=== PATIENT | female | born 1990 | race Caucasian/White ===

== ENCOUNTER 2023-10-14 17:47 | Inpatient (IN) ==
[2023-10-14 21:04] VITALS: BMI 34.3
[2023-10-14 21:58] LABS: SERUM PREGNANCY TEST, QUAL NEGATIVE <10 mIU/mL
[2023-10-14 21:59] LABS: BASOPHILS % (AUTO) 0.5 % (0.2-1.0); EOSINOPHILS # (AUTO) 0.2 x10^3/uL (0.0-0.2); EOSINOPHILS % (AUTO) 2.6 % (0.9-2.9); HEMATOCRIT 27.3 % (36.0-47.0); LYMPHOCYTES # (AUTO) 2.4 X10^3/uL (1.3-2.9); LYMPHOCYTES % (AUTO) 29.8 % (21.0-51.0); MEAN CORPUSCULAR HEMOGLOBIN 26.8 pg (27.0-34.0); MEAN CORPUSCULAR VOLUME 81.2 fL (80.0-100.0); MEAN PLATELET VOLUME 7.3 fL (7.4-11.0); MONOCYTES # (AUTO) 0.4 x10^3/uL (0.3-0.8); MONOCYTES % (AUTO) 4.4 % (0.0-13.0); NEUTROPHILS # (AUTO) 5.1 x10^3/uL (2.2-4.8); NEUTROPHILS % (AUTO) 62.7 % (42.0-75.0); PLATELET COUNT 470 X10^3/uL (150.0-450.0); RED BLOOD COUNT 3.36 X10^6/uL (3.5-5.4); RED CELL DISTRIBUTION WIDTH 13.7 % (11.6-16.5); WHITE BLOOD COUNT 8.2 X10^3/uL (3.6-10.0)
[2023-10-14] MEDS ORDERED: PHARMACY CONSULT - VANCOMYCIN XX SCH (22:00)
[2023-10-14 22:01] LABS: ERYTHROCYTE SEDIMENTATION RATE 64 MM/HOUR (0-20)
[2023-10-14] MEDS: PERCOCET TAB 5/325 MG PO PRN (22:17)
[2023-10-14] MEDS: VANCOMYCIN IV *PREMIX 1.5 G/300 ML BAG 1.5 G/300 ML PIGGYBACK IV SCH (22:19)
[2023-10-15] MEDS: TORADOL 15 MG VIAL IVP PRN (01:05)
[2023-10-15 05:53] LABS: BASOPHILS % (AUTO) 0.3 % (0.2-1.0); EOSINOPHILS # (AUTO) 0.2 x10^3/uL (0.0-0.2); EOSINOPHILS % (AUTO) 2.8 % (0.9-2.9); HEMATOCRIT 28.3 % (36.0-47.0); HEMOGLOBIN 9.4 g/dL (12.0-16.0); LYMPHOCYTES # (AUTO) 2.6 X10^3/uL (1.3-2.9); LYMPHOCYTES % (AUTO) 35.5 % (21.0-51.0); MEAN CORPUSCULAR HGB CONC 33.1 g/dL (33.0-35.0); MEAN CORPUSCULAR VOLUME 81.4 fL (80.0-100.0); MEAN PLATELET VOLUME 7.8 fL (7.4-11.0); MONOCYTES # (AUTO) 0.4 x10^3/uL (0.3-0.8); MONOCYTES % (AUTO) 5.5 % (0.0-13.0); NEUTROPHILS # (AUTO) 4.1 x10^3/uL (2.2-4.8); NEUTROPHILS % (AUTO) 55.9 % (42.0-75.0); PLATELET COUNT 435 X10^3/uL (150.0-450.0); RED BLOOD COUNT 3.47 X10^6/uL (3.5-5.4); RED CELL DISTRIBUTION WIDTH 13.6 % (11.6-16.5); WHITE BLOOD COUNT 7.3 X10^3/uL (3.6-10.0)
[2023-10-15 06:01] LABS: BLOOD UREA NITROGEN 22 mg/dL (7-18); CALCIUM 8.7 mg/dL (8.5-10.1); CARBON DIOXIDE 25.3 mmol/L (21-32); CHLORIDE 101 mmol/L (98-107); COR NA(FOR HYPERGLY) 139 mmol/L (136-145); CREATININE 1.06 mg/dL (0.55-1.02); GLUCOSE 239 mg/dL (65-99); POTASSIUM 3.9 mmol/L (3.5-5.1); SODIUM 136 mmol/L (136-145); eGFR NON BLACK RACES > 60 (>60)
[2023-10-15] MEDS: NS 250 ML IV 250 ML IV ONE (07:55)
[2023-10-15] MEDS: VANCOMYCIN IV *PREMIX 1 G/200 ML BAG 1 G/200 ML PIGGYBACK IV SCH (07:55)
[2023-10-15] MEDS ORDERED: VANCOMYCIN IV *PREMIX 1.25 G/250 ML BAG 1.25 G/250 ML PIGGYBACK IV SCH (09:00)
--- NOTE | 2023-10-15 09:04 | NOTE.SOAP ---
Soap Note Note for Day of Date of Exam: 10/15/23 Subjective Data Subjective Data: 33 year old patient seen by Dr. Hedrick in [place] who underwent a lisfranc ORIF due to fracture dislocation with skin compromise of the right foot. Unfortunately the fracture progressed to charcot arthropathy and possible infection, became red, hot, swollen and macerated. Dr. Hedrick referred to Dr. Mari who recommend two stage surgery including external fixation followed by internal fixation in a couple of weeks. She also mentioned a wound to her left hallux that she has had since april and been treating conservatively. She has had a partial hallux amputation to that toe. Patient is experiencing neuropathic pain, otherwise she denies any constitutional symptoms but did not sleep very well last night. Objective Data Objective Data: Right foot is severely erythematous and edematous. Two dorsal incisions are intact but drainange serous fluid and are macerated. Fracture blister noted on the plantar lateral aspect of the foot. Pin site is macerated and erythematous on the medial side. Pulses are palpable. Gross epicritic and protective sensation is diminished Left foot: partial hallux amputation with a wound that measures 3x3x0.5cm that probes to periosteum. Wound is fibrogranular at the base with a hyperkeratotitc boarder. Mild erythema and drainage noted from the wound. Appears infected. Assessment Assessment: - Charcot arthropathy, right foot - Pressure ulcer with possible underlying osteomyelitis, left foot Plan Plan: Patient was seen bedside this am with mother. Diagnosis and treatment were discussed in full detail including all risks and benefits of surgical vs con servative treatment. Patient will be undergoing surgical intervention with a open reduction, possible midfoot osteotomy and application of external fixator to the right foot. MRI and XR ordered for the left foot to evaluate for osteomyelitis. Will possibly need a complete amputation of the left hallux if imaging shoes signs of infection to the bone; patient understands and consents to what needs to be done. Both feet were evaluated this am and dressed with a dry sterile dressing. On vanco as scheduled. Patient NPO for surgery this afternoon Surgery: Right foot open reduction, possible osteotomy with application of external fixator and possible left hallux amputation Time: 1.5hr Anesthesia: LMA or general
--- NOTE | 2023-10-15 09:26 | VAS ---
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
[2023-10-15] MEDS: NexIUM PO SCH (10:32)
[2023-10-15] MEDS: BUSPAR PO SCH (10:32)
[2023-10-15] MEDS: LEXAPRO PO SCH (10:32)
[2023-10-15] MEDS: LEXAPRO ONE (10:50)
[2023-10-15] MEDS ORDERED: COLACE CAP 100 MG PO PRN (10:53)
[2023-10-15] MEDS ORDERED: MILK OF MAGNESIA PO PRN (10:53)
--- NOTE | 2023-10-15 11:39 | CT ---
EXAM:LOWER EXT W/OHISTORY:EVALUATE LISFRANC DISLOCATION, RIGHT FOOT ; DM, SLEEP APNEA SX: JARED, SURGICAL INSTRUMENT TECHNICIAN, ORTHO-RIGHT FOOT X 2 WEEKS AGO.COMPARISON:NoneTECHNIQUE:Multiple axial images of the right foot were obtained without IV contrast. Coronal and sagittal reformats were made and reviewed. Dose reduction techniques included Automated Exposure Control (AEC) and adjustment of mA and kV.FINDINGS:There is dorsal and lateral displacement of 2nd through 5th metatarsals with respect to the cuneiforms and bones of the midfoot consistent with Lisfranc injury configuration.There appears to be drill holes in multiple bone suggesting previous hardware with removal. Fragmentation and calcifications are noted which could be posttraumatic or postsurgical. Differential diagnosis includes neuropathic joint.Therefore this probably represents Lisfranc fracture/dislocation.Distal tibia and fibula appear normal. Bones of the hindfoot, including the talus and calcaneus are unremarkable. There are degenerative changes in the bones of the midfoot.1st metatarsal still articulates with the 1st cuneiform but there is an abnormal angulation of the articulation.Diffuse soft tissue edema and fluid is noted in the midfoot. Tiny pockets of air are present. In the absence of any recent surgery, this might represent emphysematous cellulitis.IMPRESSION:1. Findings most consistent with Lisfranc fracture/dislocation2. Edema, fluid, and emphysema in the midfoot3. Fragmentation of the midfoot bones could be posttraumatic, postsurgical response, or neuropathic jointTHIS IS AN ELECTRONICALLY VERIFIED FINAL REPORT10/15/2023 11:36 AM - Electronically signed by Ryan Rizvi MD
[2023-10-15] MEDS: NS 1,000 ML IV 1,000 ML ONE ×2 (12:40→15:20)
[2023-10-15] MEDS: ZOFRAN INJ 4 MG VIAL ONE (13:34)
[2023-10-15] MEDS ORDERED: ULTANE GAS IN ONE (13:34)
[2023-10-15] MEDS ORDERED: VENTOLIN or PROAIR HFA ONE (13:34)
[2023-10-15] MEDS: BRIDION ONE (13:34)
[2023-10-15] MEDS: VERSED ONE (13:34)
[2023-10-15] MEDS: ZEMURON 100 MG VIAL ONE (13:34)
[2023-10-15] MEDS: NS 100 ML IV 100 ML ONE (13:34)
[2023-10-15] MEDS: DIPRIVAN VIAL 20 ML ONE (13:34)
[2023-10-15] MEDS: FENTANYL VIAL INJ 100 mcg ONE ×2 (13:34→14:03)
[2023-10-15] MEDS: PEPCID 20 MG VIAL ONE (13:34)
[2023-10-15] MEDS: ANCEF VIAL 1 GRAM ONE (13:34)
[2023-10-15] MEDS: XYLOCAINE 2 % (PLAIN) ONE (13:34)
[2023-10-15] MEDS: BETADINE SOLN ONE (13:37)
--- NOTE | 2023-10-15 14:04 | RAD ---
EXAM: FOOT, LEFT three-view HISTORY: EVALUATE FOR OSTEOMYELITIS ; COMPARISON: None FINDINGS: Possible fracture of 4th proximal phalanx. Remaining visualized osseous structures appear intact. P rior partial amputation of the 1st digit skin defect in the 1st digit with edema and subcutaneous nallely e gas in the 1st digit. Possible erosive changes involving the remaining 1st proximal phalanx. The talus and calcaneus appear intact. IMPRESSION: Suggestion of osteomyelitis involving the 1st proximal phalanx. Possible fracture of 4th proximal phalanx. THIS IS AN ELECTRONICALLY VERIFIED FINAL REPORT 10/15/2023 2:01 PM - Electronically signed by Rakan Joshua MD
--- NOTE | 2023-10-15 14:07 | MRI ---
EXAM: EXT LOWER NON-JOINT W/O CON HISTORY: RIGHT FOOT CHARCOT/PAIN/SWELLING; COMPARISON: None TECHNIQUE: Multiplanar, multisequence MRI of the left foot obtained without IV contrast. FINDINGS: Extensive edema in the midfoot. Erosive changes, T1 signal loss, and edema in the talus, anterior calcaneus, 1-5 metatarsals, and throughout the tarsal bones. Moderate ankle joint effusion. No obvious flexor or extensor disruption. IMPRESSION: Extensive osteomyelitis throughout the tarsal bones and involving the 1-5 metatarsals as well as the talus and calcaneus. Findings consistent with Charcot foot. THIS IS AN ELECTRONICALLY VERIFIED FINAL REPORT 10/15/2023 2:04 PM - Electronically signed by MD ZEKE Braga
[2023-10-15] MEDS: NEO-SYNEPHRINE INJ ONE (14:20)
[2023-10-15] MEDS ORDERED: BARHEMSYS INJ IVP PRN (14:36)
[2023-10-15] MEDS ORDERED: BENADRYL INJ 50 MG VIAL IVP PRN (14:36)
[2023-10-15] MEDS ORDERED: ZOFRAN INJ 4 MG VIAL IVP PRN (14:36)
[2023-10-15] MEDS ORDERED: DILAUDID INJ IVP PRN (14:36)
[2023-10-15] MEDS ORDERED: REGLAN INJ 10 MG VIAL IVP PRN (14:36)
[2023-10-15] MEDS: NEURONTIN CAP 300 MG PO SCH (15:14)
[2023-10-15] MEDS: TORADOL 30 MG VIAL ONE (16:00)
[2023-10-15] MEDS: OFIRMEV IV 1000 MG VIAL 1,000 MG/100 ML VIAL IV ONE (16:03)
[2023-10-15] MEDS: DILAUDID INJ ONE (16:06)
[2023-10-15] MEDS: MARCAINE 0.25% INJ ONE (16:10)
[2023-10-15] MEDS ORDERED: TYLENOL 325 MG TAB PO PRN (16:27)
[2023-10-15] MEDS ORDERED: PERCOCET TAB 5/325 MG PO PRN (16:27)
[2023-10-15] MEDS ORDERED: LEXAPRO ONE ×2 (17:27→20:15)
[2023-10-15] MEDS: MORPHINE SULFATE INJ 2 MG INJ IVP PRN (19:58)
[2023-10-15] MEDS: ZOFRAN INJ 4 MG VIAL IVP PRN (20:02)
--- NOTE | 2023-10-15 20:32 | RAD ---
EXAM:FOOT, RIGHTHISTORY:POST-OP, DOC WANTS AP/LAT;COMPARISON:None.TECHNIQUE:AP and lateral views were acquiredFINDINGS:Hardware obscures the fine bony detail. There appears to be persistent dislocation of the metatarsalsIMPRESSION:There does not appear to be adequate reduction.THIS IS AN ELECTRONICALLY VERIFIED FINAL REPORT10/15/2023 8:28 PM - Electronically signed by Magdi Christopher MD
[2023-10-15] MEDS: COLACE CAP 100 MG PO SCH (21:07)
[2023-10-15] MEDS: TRESIBA U-100 INSULIN SC SCH (21:09)
[2023-10-15] MEDS: NOZIN NASAL SANITIZER TP SCH (21:09)
[2023-10-15] MEDS: VISTARIL PO PRN (21:27)
[2023-10-16] MEDS: PHARMACY COMMENT IV NR (03:59)
[2023-10-16] MEDS: LEXAPRO ONE ×2 (05:06→14:23)
[2023-10-16 05:09] LABS: CALCIUM 8.1 mg/dL (8.5-10.1); CARBON DIOXIDE 21.8 mmol/L (21-32); CREATININE 1.33 mg/dL (0.55-1.02); POTASSIUM 4.1 mmol/L (3.5-5.1)
[2023-10-16 05:24] LABS: VANCOMYCIN,TROUGH 23.5 ug/mL (15-20)
--- NOTE | 2023-10-16 06:26 | NOTE.SOAP ---
Soap Note Note for Day of Date of Exam: 10/16/23 Subjective Data Subjective Data: Patient is POD1 s/p right foot closed reduction, DENISE and application of dynamic external fixator. She was resting when seen this am but complaining that its hard to get around. Nurse states patient was vaping in her room all night against hospital regulations. Vape was confiscated. Patient denies any pain or complaints at this time. Objective Data Objective Data: Dressing c/d/i with mild strikethrough plantarly; reinforced with gauze and skyler. Neurovascular status intact Assessment Assessment: S/P s/p right foot closed reduction, DENISE and application of dynamic external fixator - Charcot arthropathy, right foot - Pressure ulcer with possible underlying osteomyelitis, left foot Plan Plan: Patient was seen bedside this am with mother. Diagnosis and treatment were discussed in full detail including all risks and benefits of surgical. Smoking cessation is encouraged. Dressings reinforced this am. PT gait train and eval: NWB to the RLE. Mupirocin ointment ordered for the left foot to be applied daily with gauze, skyler and lee wrap. MRI, XR and VAS reviewed; MRI performed on the wrong foot and patient cannot get MRI anymore due to external fixator. Patient may need a wheelchair or crutches based on PT eval. Patient is okay for discharge from a podiatry standpoint once physical therapy works with patient.
[2023-10-16] MEDS: NovoLIN R (or HumuLIN R) SC PRN (09:37)
[2023-10-16] MEDS: ACTOS PO SCH (09:44)
[2023-10-16] MEDS: GLUCOPHAGE PO SCH (09:46)
[2023-10-16] MEDS: BACTROBAN TOPICAL OINT TOP SCH (09:57)
[2023-10-16] MEDS: LOVENOX INJ 40 MG SYR SC SCH (09:58)
[2023-10-16] MEDS: NS 500 ML IV 500 ML IV ONE (10:01)
[2023-10-16] MEDS: NS 1,000 ML IV 1,000 ML IV SCH (10:01)
[2023-10-16] MEDS: VANCOMYCIN IV *PREMIX 1 G/200 ML BAG 1 G/200 ML PIGGYBACK IV SCH (12:24)
[2023-10-16] MEDS: ZOFRAN INJ 4 MG VIAL IVP PRN ×2 (15:45→20:20)
[2023-10-16] MEDS: MULTIHANCE INJ VIAL ONE (18:40)
[2023-10-16] MEDS ORDERED: PHENERGAN INJ 25 MG IM PRN (20:03)
[2023-10-16] MEDS ORDERED: KAOPECTATE (NEW FORMULA) PO PRN (20:22)
[2023-10-16] MEDS ORDERED: LEXAPRO ONE (20:44)
[2023-10-16] MEDS: MERREM VIAL 1 G in NS 100 ML IV 100 ML IV SCH (22:41)
[2023-10-17] MEDS ORDERED: LEXAPRO ONE (04:41)
[2023-10-17 05:02] LABS: BASOPHILS % (AUTO) 0.2 % (0.2-1.0); EOSINOPHILS # (AUTO) 0.1 x10^3/uL (0.0-0.2); EOSINOPHILS % (AUTO) 1.1 % (0.9-2.9); HEMATOCRIT 23.8 % (36.0-47.0); HEMOGLOBIN 7.8 g/dL (12.0-16.0); LYMPHOCYTES # (AUTO) 1.2 X10^3/uL (1.3-2.9); LYMPHOCYTES % (AUTO) 14.4 % (21.0-51.0); MEAN CORPUSCULAR HEMOGLOBIN 26.8 pg (27.0-34.0); MEAN CORPUSCULAR HGB CONC 32.7 g/dL (33.0-35.0); MEAN PLATELET VOLUME 7.6 fL (7.4-11.0); MONOCYTES # (AUTO) 0.6 x10^3/uL (0.3-0.8); MONOCYTES % (AUTO) 7.7 % (0.0-13.0); NEUTROPHILS # (AUTO) 6.1 x10^3/uL (2.2-4.8); NEUTROPHILS % (AUTO) 76.6 % (42.0-75.0); PLATELET COUNT 316 X10^3/uL (150.0-450.0); RED BLOOD COUNT 2.91 X10^6/uL (3.5-5.4); RED CELL DISTRIBUTION WIDTH 14.2 % (11.6-16.5)
[2023-10-17 05:32] LABS: ALANINE AMINOTRANSFERASE 25 Units/L (12-78); ALKALINE PHOSPHATASE 150 Units/L (46-116); ASPARTATE AMINO TRANSFERASE 26 Units/L (15-37); BLOOD UREA NITROGEN 36 mg/dL (7-18); CALCIUM 7.9 mg/dL (8.5-10.1); CARBON DIOXIDE 22.9 mmol/L (21-32); CHLORIDE 104 mmol/L (98-107); COR CA(FOR HYPOALB) 9.5 mg/dL (8.5-10.1); COR NA(FOR HYPERGLY) 140 mmol/L (136-145); CREATININE 0.99 mg/dL (0.55-1.02); GLUCOSE 182 mg/dL (65-99); POTASSIUM 3.8 mmol/L (3.5-5.1); SODIUM 138 mmol/L (136-145); TOTAL PROTEIN 6.9 g/dL (6.4-8.2); eGFR NON BLACK RACES > 60 (>60)
[2023-10-17 08:16] VITALS: TEMP 97.6
[2023-10-17] MEDS: GLUCOPHAGE ONE (09:09)
[2023-10-17] MEDS: PROCRIT or EPOGEN VIAL 20,000 UNITS SC ONE (09:45)
[2023-10-17] MEDS: DILAUDID INJ IVP PRN (09:45)
[2023-10-17] MEDS: NS 100 ML IV 100 ML with VENOFER 200 MG IV ONE (10:06)
[2023-10-17 12:19] VITALS: BP 115/69; PULSE 83; RESP 25; O2SAT 99
[2023-10-17] MEDS ORDERED: PHARMACY COMMENT IV NR (20:00)
== END 2023-10-17 13:20 | disposition home health service (06) | DRG 504 ==
LOC: ICU 19:23
PROVIDERS: ADMIT Obstetrics & Gynecology Obstetrics; ATTEND Obstetrics & Gynecology Obstetrics
PROC: APEXFIX (2023-10-15 14:15)
DX: R79.82 Elevated C-reactive protein (CRP); E11.65 Type 2 diabetes mellitus with hyperglycemia; L03.115 Cellulitis of right lower limb; Y92.9 Unspecified place or not applicable; M14.671 Charcot's joint, right ankle and foot; Z79.4 Long term (current) use of insulin; B96.89 Other specified bacterial agents as the cause of diseases classified elsewhere; X58.XXXA Exposure to other specified factors, initial encounter; M21.541 Acquired clubfoot, right foot; R26.89 Other abnormalities of gait and mobility; R70.0 Elevated erythrocyte sedimentation rate; S93.334A Other dislocation of right foot, initial encounter